=== PATIENT | female | born 1965 | race Caucasian/White ===

== ENCOUNTER 2022-12-11 10:56 | Day surgery (SDC) | payer OTHER ==
[2022-12-10 12:10] VITALS: BMI 27.5
[~2022-12-11 10:56] MED LIST: EPINEPHrine 0.3 MG in Ophthalmic Irrigation Solution 500 ML IRR SCH; Famotidine/PF 20 mg/2ml Vial ONE; Midazolam HCl 2 mg/2 ml Vial ONE; fentaNYL 50 mcg/mL 1 mL Vial ONE
[2022-12-11] MEDS ORDERED: PHENYLephrine 2.5% Ophth Soln 15 ml Bottle ONE (11:40)
[2022-12-11] MEDS ORDERED: CEFAZOLIN 1 GM VIAL ONE (12:59)
[2022-12-11] MEDS ORDERED: CYCLOPENTOLATE 2% ONE (12:59)
[2022-12-11] MEDS ORDERED: PROPOFOL 200 MG/20 ML VIAL ONE (12:59)
[2022-12-11] MEDS ORDERED: Bupivacaine 0.75% 10 ML VIAL ONE (12:59)
[2022-12-11] MEDS ORDERED: Lidocaine 1% PF 5 ML VIAL ONE (12:59)
[2022-12-11] MEDS ORDERED: OPTH ONE (12:59)
[2022-12-11] MEDS ORDERED: Maxitrol 0.1% Opth Oint 3.5 GM TUBE ONE (12:59)
[2022-12-11] MEDS ORDERED: Triamcinolone 40 MG/ML VIAL ONE (12:59)
[2022-12-11] MEDS ORDERED: Ondansetron PF 4 MG/2 ML Vial ONE ×2 (12:59→13:38)
[2022-12-11] MEDS ORDERED: Dexamethasone 20 MG/5 ML VIAL ONE (12:59)
[2022-12-11] MEDS ORDERED: Lidocaine 4% PF 5 ML AMP ONE (12:59)
== END 2022-12-11 15:10 | disposition home or self-care (01) ==
LOC: SDC 10:56
PROVIDERS: ATTEND Ophthalmology Retina Specialist
PROC: 08U03JZ Supplement of Right Eye with Synthetic Substitute, Percutaneous Approach (ICD-10-PCS; principal; 2022-12-11)
PROC: 08T43ZZ Resection of Right Vitreous, Percutaneous Approach (ICD-10-PCS; principal; 2022-12-11)
PROC: 08QF3ZZ Repair Left Retina, Percutaneous Approach (ICD-10-PCS; principal; 2022-12-11)
DX: H33.021 Retinal detachment with multiple breaks, right eye (principal); H33.312 Horseshoe tear of retina without detachment, left eye
CPT/HCPCS: 67025; J0690; J1100; J2250; J2405; J2704; J3010; J3301; J3490; S0028

== ENCOUNTER 2023-06-15 10:55 | Emergency (ER) | payer OTHER ==
[2023-06-15] MEDS ORDERED: Ondansetron PF 4 MG/2 ML Vial ONE (12:04)
[2023-06-15] MEDS ORDERED: Morphine 4 MG/ML VIAL ONE (12:04)
[2023-06-15 12:49] LABS: Bacteria/HPF None Seen HPF (None Seen); Bilirubin Negative (Negative); Blood, Urine Negative (Negative); CAUTI Indications for Culture Pelvic or flank pain; Clarity Clear (Clear); Glucose, Urine (Dipstick) Normal (Negative); Ketone, Urine Negative (Negative); Leukocyte Negative Leu/uL (Negative); Nitrite Negative (Negative); Protein, Urine (Dipstick) 20 mg/dL (Neg-Trace); RBC/HPF 0-3 HPF (0-3); Specific Gravity, Urine 1.032 (1.002-1.036); Urobilinogen Normal mg/dL (Less than 2); WBC/HPF 0-3 HPF (0-3)
[2023-06-15 12:49] LABS: #Basophils 0.1 thou/uL (0.0-0.2); #Eosinphils 0.2 thou/uL (0.0-0.7); #Monocytes 0.5 thou/uL (0.11-0.59); #Neutrophils 7.1 thou/uL (1.40-6.50); %Basophils 0.7 % (0.0-1.0); %Eosinophils 2.2 % (0.0-10.0); %Lymphocytes 13.6 % (21.0-51.0); %Monocytes 5.3 % (0.0-10.0); %Neutrophils 77.9 % (42.0-75.0); Hematocrit 41.6 % (36.0-47.0); Hemoglobin 13.9 g/dL (12.0-16.0); Mean Corpuscular HGB CONC 33.4 g/dL (32.0-36.0); Mean Corpuscular Hemoglobin 29.1 pg (27.0-31.0); Mean Platelet Volume 11.2 fL (7.4-10.4); Platelet Count 247 10x3/uL (130-400); RBC Distribution Width 13.6 % (11.5-14.5); Red Blood Cell (RBC) Count 4.78 mill/uL (4.20-5.40); White Blood Cell (WBC) Count 9.1 10x3/uL (4.8-10.8)
[2023-06-15 12:59] LABS: Urine Culture Reflex No No
[2023-06-15 13:11] LABS: ALT (SGPT) 12 U/L (8-55); AST (SGOT) 16 U/L (5-34); Albumin 4.4 g/dL (3.5-5.0); Alkaline Phosphatase 84 U/L (40-110); Anion Gap 12 mmol/L (10-20); BUN (Urea Nitrogen) 29 mg/dL (9.8-20.1); Bilirubin, Total 0.5 mg/dL (0.2-1.2); Calc. Creatinine Clearance 0 mL/min (70-130); Calcium 9.8 mg/dL (7.8-10.44); Carbon Dioxide 20 mmol/L (22-29); Chloride 114 mmol/L (98-107); Estimated GFR 62; Globulin 3.2 g/dL (2.4-3.5); Glucose 120 mg/dL (70-105); Potassium 4.5 mmol/L (3.5-5.1); Protein, Total 7.6 g/dL (6.0-8.3); Sodium 141 mmol/L (136-145)
[2023-06-15] MEDS ORDERED: HYDROcodone/Acetaminophen 5/325 mg Tablet ONE (13:32)
== END 2023-06-15 15:22 | disposition home or self-care (01) ==
LOC: ERS 10:55
DX: N13.30 Unspecified hydronephrosis (principal); H33.8 Other retinal detachments
CPT/HCPCS: 74176; 80053; 81001; 85025; 96374; 96375; J2270; J2405

== ENCOUNTER 2023-10-29 08:30 | Day surgery (SDC) | payer OTHER ==
[2023-10-28 14:27] VITALS: BMI 26.3
[~2023-10-29 08:30] MED LIST changes: -EPINEPHrine 0.3 MG in Ophthalmic Irrigation Solution 500 ML IRR SCH; -Famotidine/PF 20 mg/2ml Vial ONE; +Fluorouracil 100 MG, Enoxaparin 25 MG, EPINEPHrine 0.3 MG in Ophthalmic Irrigation Solu... IRR SCH; -Midazolam HCl 2 mg/2 ml Vial ONE; -fentaNYL 50 mcg/mL 1 mL Vial ONE
[2023-10-29] MEDS ORDERED: PHENYLephrine 2.5% Ophth Soln 15 ml Bottle ONE (08:55)
[2023-10-29] MEDS ORDERED: Cyclopentolate 1% Opth Drop 2 ML BOT ONE (08:55)
[2023-10-29] MEDS ORDERED: fentaNYL 50 mcg/mL 1 mL Vial ONE (09:28)
[2023-10-29] MEDS ORDERED: Midazolam HCl 2 mg/2 ml Vial ONE (09:28)
[2023-10-29] MEDS ORDERED: PROPOFOL 200 MG/20 ML VIAL ONE (09:39)
[2023-10-29] MEDS ORDERED: Triamcinolone 40 MG/ML VIAL ONE (09:39)
[2023-10-29] MEDS ORDERED: Bupivacaine 0.75% 10 ML VIAL ONE (09:39)
[2023-10-29] MEDS ORDERED: TISSUEBLUE 0.5 ML SYRINGE IO ONE (09:39)
[2023-10-29] MEDS ORDERED: Lidocaine 4% PF 5 ML AMP ONE (09:39)
[2023-10-29] MEDS ORDERED: Indocyanine Green 25 MG/10 ML VIAL ONE (09:39)
[2023-10-29] MEDS ORDERED: Enoxaparin 30 MG (0.3 mL) SYRINGE ONE (09:39)
[2023-10-29] MEDS ORDERED: CEFAZOLIN 1 GM VIAL ONE (09:39)
[2023-10-29] MEDS ORDERED: Maxitrol 0.1% Opth Oint 3.5 GM TUBE ONE (09:39)
[2023-10-29] MEDS ORDERED: Lidocaine 1% PF 5 ML VIAL ONE (09:39)
== END 2023-10-29 11:49 | disposition home or self-care (01) ==
LOC: SDC 08:30
PROVIDERS: ATTEND Ophthalmology Retina Specialist
PROC: 08943ZZ Drainage of Right Vitreous, Percutaneous Approach (ICD-10-PCS; principal; 2023-10-29)
PROC: 08123J4 Bypass Right Anterior Chamber to Sclera with Synthetic Substitute, Percutaneous Approach (ICD-10-PCS; principal; 2023-10-29)
DX: H35.371 Puckering of macula, right eye (principal); H40.2213 Chronic angle-closure glaucoma, right eye, severe stage
CPT/HCPCS: C1762; C1783; J0171; J0690; J1650; J2250; J2704; J3010; J3301; J3490; J9190